=== PATIENT | female | born 1975 | race Caucasian/White ===

== ENCOUNTER 2017-06-18 21:27 | Emergency (ER) | payer OTHER ==
[~2017-06-18] VITALS: Ht 170.2 cm; Wt 106.6 kg
[~2017-06-18 21:27] MED LIST: AMOXICILLIN875 MG PO; LAMICTAL PO; LITHIUM PO; ZOFRAN ODT4 MG SL; ZOLOFT100 MG PO; [UNRECOGNIZED DRUG - OTHER] PO
== END 2017-06-19 00:03 | disposition home or self-care (01) ==
LOC: SED 21:27
DX: G43.909 Migraine, unspecified, not intractable, without status migrainosus (principal); F31.9 Bipolar disorder, unspecified; Z79.899 Other long term (current) drug therapy
CPT/HCPCS: 36415; 96365; 96375; 99284; J0780; J1100; J1200; J1885; J3475